=== PATIENT | male | born 1995 | race Caucasian/White ===

== ENCOUNTER 2016-11-22 14:40 | Emergency (ER) | payer BC ==
[~2016-11-22] VITALS: Ht 180.3 cm; Wt 79.0 kg
[2016-11-22 14:43] VITALS: TEMP 36.9; Ht 180.3 cm; Wt 79.0 kg
--- NOTE | 2016-11-22 14:53 | EMERGENCY ROOM VISIT NOTE ---
History Report prepared by Toyaibkavita: Jean Paul Roy Under the Supervision of: Dr. Arthur Naylor D.O. First contact with patient: 14:42 Stated Complaint: OVERDOSE (ACCIDENTAL) History of Present Illness The patient is a 21 year old male who presents to the Emergency Room with complaints of possible acute marijuana overdose. The patient believes he ate a cookie that contained THC at 1310 today. He has never ingested THC in an edible form before. He ate the entire cookie, which was acquired from an acquaintance. He was by himself when he ate it. He is not sure if the acquaintance made the cookie themselves. They did not tell him what was in the cookie, but it came with a note that said "surprise." The patient complains of new chest pain and shortness of breath, and he feels "off." He denies nausea or vomiting. He denies other drug or alcohol ingestion today. He did have some coffee. He does not take any medications. He denies any major medical problems. Source of History: patient Onset: 1310 today Position: other (global) Quality: other (possible marijauna overdose) Timing: other (acute) Associated Symptoms: + SOB, + chest pain, No nausea, No vomiting Review of Systems See HPI for pertinent positives & negatives. A total of 10 systems reviewed and were otherwise negative. Past Medical & Surgical Medical Problems: (1) No known health problems Family History No pertinent family history Social History Drug Use: marijuana Occupation Status: [employer] student Current/Historical Medications No Active Prescriptions or Reported Meds Allergies Coded Allergies: Ethanol (Verified Allergy, Unknown, hives, 11/22/16) Guaifenesin (Verified Allergy, Unknown, hives, 11/22/16) Physical Exam Vital Signs Date Time Temp Pulse Resp B/P Pulse Ox O2 Delivery O2 Flow Rate FiO2 11/22/16 18:30 97 16 142/84 99 Room Air 11/22/16 16:16 78 16 113/80 96 11/22/16 14:54 111 11/22/16 14:43 36.9 123 20 130/79 99 Room Air Physical Exam GENERAL: Patient is awake, alert, and in no acute distress. Patient is resting comfortably and showing no signs of anxiety EYES: The conjunctivae are injected bilaterally. The pupils are dilated but reactive to light bilaterally. EARS, NOSE, MOUTH AND THROAT: The nose is without any evidence of any deformity. Mucous membranes are dry tongue is midline NECK: The neck is nontender and supple. RESPIRATORY: Normal respiratory effort is noted there is no evidence of wheezing rhonchi or rales CARDIOVASCULAR: Tachycardic rate noted to auscultation, no definite murmur was noted. GASTROINTESTINAL: The abdomen is soft. Bowel sounds are present in all quadrants. Abdomen is nontender MUSCULOSKELETAL/EXTREMITIES: There is no evidence of gross deformity full range of motion is noted in the hips and shoulders SKIN: There is no obvious evidence of any rash. There are no petechiae, pallor or cyanosis noted. NEUROLOGIC: Patient is awake alert and oriented x3 strength is symmetric patellar reflexes are 2+ bilaterally Medical Decision & Procedures ER Provider Diagnostic Interpretation: X-ray results as stated below per interpretation by me and the radiologist. CHEST ONE VIEW PORTABLE CLINICAL HISTORY: posse OD dyspnea COMPARISON STUDY: No previous studies for comparison. FINDINGS: The bones soft tissues and hemidiaphragms are normal. The cardiomediastinal silhouette is normal. The lungs are clear. The pulmonary vasculature is normal. IMPRESSION: Negative chest. Electronically signed by: Anup Wood M.D. 11/22/2016 3:01 PM Dictated Date/Time: 11/22/2016 3:00 PM Laboratory Results Test 11/22/16 00:00 Urine Opiates Screen NEG (NEG) Urine Methadone, Qualitative NEG (NEG) Urine Barbiturates NEG (NEG) Urine Phencyclidine (PCP) Level NEG (NEG) Ur Amphetamine/Methamphetamine NEG (NEG) MDMA (Ecstasy) Screen NEG (NEG) Urine Benzodiazepines Screen NEG (NEG) Urine Cocaine Metabolite NEG (NEG) Urine Marijuana (THC) POS (NEG) Laboratory results per my review. Medications Administered Medications (Trade) Dose Ordered Sig/Rc Route Start Time Stop Time Status Last Admin Dose Admin Ondansetron HCl (Zofran Odt) 4 mg ONE ONCE PO 11/22/16 15:00 11/22/16 15:01 DC 11/22/16 15:12 4 MG ECG Indication: toxicologic Rate (beats per minute): 101 Rhythm: sinus tachycardia Findings: no acute ischemic change, no ectopy ED Course 1442: The patient was evaluated in room B3b. A complete history and physical examination were performed. 1500: Zofran Odt 4 mg PO. 1758: Reevaluated the patient. Discussed the discharge instructions with him. He verbalized understanding and agreement. The patient was prepared for discharge. Medical Decision Prior records/ancillary studies reviewed. Triage Nursing notes reviewed. The patient's history was concerning for altered mental status and probable overdose. Differential diagnosis: Etiologies such as toxicologic, infection, hypoglycemia, electrolyte abnormalities, cardiac sources, intracerebral event, neurologic, as well as others were entertained. The patient is a 21-year-old male who presented to the emergency department for an evaluation of altered mental status. The patient states that he had a friend cookie that he ate. The cookie had a field contact technician it which said "surprise". The patient thought that this meant it was a marijuana edible cookie. He presented to the emergency department because he is unsure what exactly he ate. The patient did have tachycardia. Otherwise his vital signs were stable. The patient was observed in a period of time apartment. His condition improved significantly in a pattern that I feel would be consistent with marijuana at all. I discussed her own troubles with the patient described that they're not a good idea to use because there are legal also they're very predictable absorption. He was encouraged to rest and avoid any strenuous activity. He was encouraged to follow-up with [facility] this week. He was also encouraged to avoid any further drug or alcohol abuse. He was also encouraged to return the emergency Department immediately if symptoms change worsen or need arises. Impression Primary Impression: Marijuana intoxication Scribe Attestation The scribe's documentation has been prepared under my direction and personally reviewed by me in its entirety. I confirm that the note above accurately reflects all work, treatment, procedures, and medical decision making performed by me. Departure Information Dispostion Home / Self-Care Prescriptions No Active Prescriptions or Reported Meds Forms HOME CARE DOCUMENTATION FORM, IMPORTANT VISIT INFORMATION, WORK / SCHOOL INSTRUCTIONS Patient Instructions ED Marijuana Abuse, My [facility] Additional Instructions Avoid any further alcohol or drug use. Drink plenty of clear liquids. Do not operate any heavy machinery including driving a vehicle for next 24 hours.
[2016-11-22] MEDS ORDERED: ONDANSETRON 4MG OD TAB PO ONE (15:00)
--- NOTE | 2016-11-22 15:03 | DIAGNOSTIC IMAGING REPORT ---
CHEST ONE VIEW PORTABLE CLINICAL HISTORY: posse OD dyspnea COMPARISON STUDY: No previous studies for comparison. FINDINGS: The bones soft tissues and hemidiaphragms are normal. The cardiomediastinal silhouette is normal. The lungs are clear. The pulmonary vasculature is normal. IMPRESSION: Negative chest. Electronically signed by: Anup Wood M.D. 11/22/2016 3:01 PM Dictated Date/Time: 11/22/2016 3:00 PM
[2016-11-22 16:52] LABS: BENZODIAZEPINE, URINE NEG (NEG); COCAINE,URINE NEG (NEG); PHENCYCLIDINE, URINE NEG (NEG)
[2016-11-22 18:30] VITALS: BP 142/84; PULSE 97; O2SAT 99
== END 2016-11-22 18:31 | disposition home or self-care (01) ==
LOC: C.EDB 14:45
DX: F12.929 Cannabis use, unspecified with intoxication, unspecified (principal); R00.0 Tachycardia, unspecified; Z88.8 Allergy status to other drugs, medicaments and biological substances

== ENCOUNTER 2016-12-06 00:46 | Emergency (ER) | payer BC ==
[~2016-12-06] VITALS: Ht 180.3 cm; Wt 78.6 kg
[2016-12-06 00:50] VITALS: Ht 180.3 cm; Wt 78.6 kg
[2016-12-06 02:04] LABS: BASO % 0.2 %; BASO ABS # 0.02 K/uL (0-0.2); EOS % 0.1 %; HEMATOCRIT 43.8 % (42-52); IG% 0.2 %; LYMPH ABS # 1.42 K/uL (1.2-3.4); MEAN CELL VOLUME 62.5 fL (80-100); MEAN CORPUSCULAR HEMOGLOBIN 20.7 pg (25-34); MEAN CORPUSCULAR HGB CONC 33.1 g/dl (32-36); MONO % 8.1 %; NEUT % 75.4 %; PLATELET COUNT 222 K/uL (130-400); RED BLOOD COUNT 7.01 M/uL (4.7-6.1); WHITE BLOOD COUNT 8.87 K/uL (4.8-10.8)
[2016-12-06 02:24] LABS: ALT/SGPT 28 U/L (12-78); AST/SGOT 11 U/L (15-37); BLOOD UREA NITROGEN 15 mg/dl (7-18); BUN/CREATININE RATIO 14.7 (10-20); CALCIUM 9.1 mg/dl (8.5-10.1); CARBON DIOXIDE 28 mmol/L (21-32); CHLORIDE 106 mmol/L (98-107); GLUCOSE 101 mg/dl (70-99); MAGNESIUM 2.2 mg/dl (1.8-2.4); POTASSIUM 3.9 mmol/L (3.5-5.1); SODIUM 142 mmol/L (136-145)
[2016-12-06 02:24] LABS: URINE APPEARANCE CLEAR (CLEAR); URINE BILIRUBIN NEG (NEG); URINE COLOR YELLOW; URINE NITRITE NEG (NEG); URINE SPECIFIC GRAVITY 1.023 (1.000-1.030); UROBILINOGEN NEG (NEG); ZZUR CULT IF INDIC CLEAN CATCH NO
[2016-12-06 02:29] LABS: MANUAL MICROSCOPIC REQUIRED? NO; REVIEW REQ? NO
[2016-12-06 02:35] LABS: ALB/GLOB RATIO 1.2 (0.9-2); ALKALINE PHOSPHATASE 106 U/L (45-117); THYROID STIMULATING HORMONE 0.421 uIu/ml (0.300-4.500)
[2016-12-06 02:41] LABS: COMPLETE YES; MICROCYTOSIS PRESENT
[2016-12-06 02:43] LABS: BENZODIAZEPINE, URINE NEG (NEG); COCAINE,URINE NEG (NEG); PHENCYCLIDINE, URINE NEG (NEG)
[2016-12-06] MEDS ORDERED: LORAZEPAM 0.5 MG TAB SL STA (03:00)
--- NOTE | 2016-12-06 03:43 | EMERGENCY ROOM VISIT NOTE ---
History First contact with patient: 01:02 Chief Complaint: NEURO SYMPTOMS Stated Complaint: TINGLING JAW PAIN,HANDS SHAKING,FATIGUE,NECK PAIN Nursing Triage Summary: Pt states right jaw and neck pain started around 1300 after eating lunch. Urgent care prescribed steroid. States later this evening experienced bilateral hand and foot numbness with mood swings. Pt also states he is speaker "slower than usual". History of Present Illness The patient is a 21 year old male who presents to the Emergency Room with complaints of multiple symptoms. He states that he has had a right lower dental pain which developed after eating a sandwich for lunch today. He was seen at [facility] and prescribed a steroid. He states this helped the tooth pain, but he has since developed pins and needles throughout his entire body, burning behind his eyes, and urinary urgency. He feels like he has been having difficulty with motor control. He reports that he has had a "burst of depression" and feels like he can't think straight. He reports he has had chills. He does report he has had some symptoms that were somewhat similar to this several months ago, but they resolved on their own. He denies any headache , neck pain, trauma, drug or alcohol use, numbness, weakness, blurred vision or slurred speech. Review of Systems A complete 10 point review of systems was reviewed with the patient with pertinent positives and negatives as per history of present illness. All else were negative. Past Medical/Surgical History Medical Problems: (1) No known health problems Family History No pertinent family history Social History Smoking Status: Never Smoker Drug Use: marijuana Occupation Status: [employer] student Current/Historical Medications No Active Prescriptions or Reported Meds Allergies Coded Allergies: Ethanol (Verified Allergy, Unknown, hives, 12/06/16) Guaifenesin (Verified Allergy, Unknown, hives, 12/06/16) Physical Exam Vital Signs Date Time Temp Pulse Resp B/P Pulse Ox O2 Delivery O2 Flow Rate FiO2 12/06/16 03:49 36.3 76 16 116/72 96 12/06/16 02:38 76 16 116/72 96 Room Air 12/06/16 01:40 88 12/06/16 00:50 36.3 67 20 151/84 100 Room Air Physical Exam VITALS: Vitals are noted on the nurse's note and reviewed by myself. Vital signs stable. GENERAL: This is a 21-year-old male, in no acute distress, nondiaphoretic, well- developed well-nourished. SKIN: The skin was without rashes. HEAD: Normocephalic atraumatic. EARS: External auditory canals clear, tympanic membranes pearly calixto without erythema or effusion bilaterally. EYES: Pupils equal round and reactive to light and accommodation. Extraocular movements intact. MOUTH: Mucous membranes moist. Tonsils are not enlarged. Pharynx without erythema or exudate. NECK: Supple without nuchal rigidity. No lymphadenopathy. HEART: Regular rate and rhythm without murmurs gallops or rubs. LUNGS: Clear to auscultation bilaterally without wheezes, rales or rhonchi. MUSCULOSKELETAL: No muscle atrophy, erythema, or edema noted. Full range of motion without joint tenderness in all extremities. Normal gait. Strength 5/ 5 throughout. NEURO: Patient was alert and oriented to person place and time. Normal sensation to light and sharp touch. Deep tendon reflexes 2+ throughout. No focal neurological deficits. Normal rapid alternating movements. Normal finger -to-nose testing. Negative Romberg and pronator drift. Medical Decision & Procedures ER Provider Diagnostic Interpretation: CT HEAD: No evidence of acute infarct, hemorrhage, mass, or edema. Minimal mucosal thickening of the paranasal sinuses. No acute osseous normality. Radiologist: Jesse Bazzi MD Laboratory Results 12/06/16 01:40 Red Blood Count 7.01, Mean Corpuscular Volume 62.5, Mean Corpuscular Hemoglobin 20.7, Mean Corpuscular Hemoglobin Concent 33.1, Neutrophils (%) (Auto) 75.4, Lymphocytes (%) (Auto) 16.0, Monocytes (%) (Auto) 8.1, Eosinophils (%) (Auto) 0.1, Basophils (%) (Auto) 0.2, Neutrophils # (Auto) 6.68, Lymphocytes # (Auto) 1.42, Monocytes # (Auto) 0.72, Eosinophils # (Auto) 0.01, Basophils # (Auto) 0.02 12/06/16 01:40 Test 12/06/16 01:40 12/06/16 02:00 White Blood Count 8.87 K/uL (4.8-10.8) Red Blood Count 7.01 M/uL (4.7-6.1) Hemoglobin 14.5 g/dL (14.0-18.0) Hematocrit 43.8 % (42-52) Mean Corpuscular Volume 62.5 fL (80-100) Mean Corpuscular Hemoglobin 20.7 pg (25-34) Mean Corpuscular Hemoglobin Concent 33.1 g/dl (32-36) Platelet Count 222 K/uL (130-400) Neutrophils (%) (Auto) 75.4 % Lymphocytes (%) (Auto) 16.0 % Monocytes (%) (Auto) 8.1 % Eosinophils (%) (Auto) 0.1 % Basophils (%) (Auto) 0.2 % Neutrophils # (Auto) 6.68 K/uL (1.4-6.5) Lymphocytes # (Auto) 1.42 K/uL (1.2-3.4) Monocytes # (Auto) 0.72 K/uL (0.11-0.59) Eosinophils # (Auto) 0.01 K/uL (0-0.5) Basophils # (Auto) 0.02 K/uL (0-0.2) RDW Standard Deviation 32.9 fL (36.4-46.3) RDW Coefficient of Variation 14.7 % (11.5-14.5) Immature Granulocyte % (Auto) 0.2 % Immature Granulocyte # (Auto) 0.02 K/uL (0.00-0.02) Microcytosis PRESENT Anion Gap 8.0 mmol/L (3-11) Est Creatinine Clear Calc Drug Dose 125.4 ml/min Estimated GFR () 125.0 Estimated GFR (Non- 107.9 BUN/Creatinine Ratio 14.7 (10-20) Calcium Level 9.1 mg/dl (8.5-10.1) Magnesium Level 2.2 mg/dl (1.8-2.4) Total Bilirubin 0.6 mg/dl (0.2-1) Aspartate Amino Transf (AST/SGOT) 11 U/L (15-37) Alanine Aminotransferase (ALT/SGPT) 28 U/L (12-78) Alkaline Phosphatase 106 U/L (45-117) Troponin I < 0.015 ng/ml (0-0.045) Total Protein 7.8 gm/dl (6.4-8.2) Albumin 4.3 gm/dl (3.4-5.0) Globulin 3.5 gm/dl (2.5-4.0) Albumin/Globulin Ratio 1.2 (0.9-2) Thyroid Stimulating Hormone (TSH) 0.421 uIu/ml (0.300-4.500) Urine Color YELLOW Urine Appearance CLEAR (CLEAR) Urine pH 7.0 (4.5-7.5) Urine Specific [place] 1.023 (1.000-1.030) Urine Protein NEG (NEG) Urine Glucose (UA) NEG (NEG) Urine Ketones NEG (NEG) Urine Occult Blood NEG (NEG) Urine Nitrite NEG (NEG) Urine Bilirubin NEG (NEG) Urine Urobilinogen NEG (NEG) Urine Leukocyte Esterase NEG (NEG) Urine Opiates Screen NEG (NEG) Urine Methadone, Qualitative NEG (NEG) Urine Barbiturates NEG (NEG) Urine Phencyclidine (PCP) Level NEG (NEG) Ur Amphetamine/Methamphetamine NEG (NEG) MDMA (Ecstasy) Screen NEG (NEG) Urine Benzodiazepines Screen NEG (NEG) Urine Cocaine Metabolite NEG (NEG) Urine Marijuana (THC) NEG (NEG) Medications Administered Medications (Trade) Dose Ordered Sig/Rc Route Start Time Stop Time Status Last Admin Dose Admin Lorazepam (Ativan Tab) 0.5 mg NOW STAT SL 12/06/16 03:00 12/06/16 03:02 DC 12/06/16 03:06 0.5 MG ECG Rate (beats per minute): 67 Rhythm: normal sinus (sinus arrhythmia) Findings: no acute ischemic change, no ectopy ED Course The patient was evaluated as above. Labs were drawn and IV access was obtained. CT was performed and read by radiology as above. Patient was reevaluated and given 0.5 mg Ativan Patient was reevaluated and stated that he felt slightly better. Discharge instructions were reviewed with the patient. The patient verbalized understanding of my assessment and treatment plan and was discharged home in good condition. Medical Decision Differential diagnosis includes malignancy, infection, electrolyte abnormality, thyroid abnormality, anxiety, among others. The patient is a 21-year-old male who presents today complaining of multiple vague symptoms. Labs revealed no leukocytosis, anemia or concerning electrolyte abnormalities. Patient is in a euthyroid state. Troponin was not elevated. Urinalysis was not suggestive of infection. Urine tox screen was negative. EKG was interpreted by myself and shows a normal sinus rhythm with sinus arrhythmia. A CT scan of the head was performed and was unremarkable. The patient has a completely benign neurological examination. He did question whether the symptoms could be due to MS, and I explained that I felt this was highly unlikely. I do feel his symptoms are likely related to anxiety. He was informed of these findings and was instructed to follow-up closely with his primary care provider. He did have significant improvement of symptoms throughout the duration of his stay in the emergency department. The patient's case was reviewed with Dr. Sifuentes, ED attending physician, who agreed with my assessment and treatment plan. Based on the patient's presentation and work up, I feel the patient is stable for outpatient treatment. The patient was educated to return to the emergency department for any worsening of their current condition or new/concerning symptoms. He will follow up with his PCP. Impression Primary Impression: Anxiety Departure Information Dispostion Home / Self-Care Condition GOOD Prescriptions No Active Prescriptions or Reported Meds Referrals No Doctor, Assigned (PCP) Patient Instructions My [facility] Additional Instructions Follow-up with your primary care provider as soon as you get home. Rest today and tomorrow. Return to the emergency department with any worsening or new/concerning symptoms.
[2016-12-06 03:49] VITALS: BP 116/72; PULSE 76; TEMP 36.3; O2SAT 96
--- NOTE | 2016-12-06 06:31 | DIAGNOSTIC IMAGING REPORT ---
CT HEAD WITHOUT CONTRAST (CT) CLINICAL HISTORY: Headache, dizziness, slurred speech, motor control issues. COMPARISON STUDY: No previous studies for comparison. TECHNIQUE: Axial CT of the brain is performed from the vertex to the skull base. IV contrast was not administered for this examination. CT DOSE: 537.48 mGy.cm FINDINGS: No intra or extra-axial mass lesions are visualized. There is no CT evidence of acute cortical infarction. There is no evidence of midline shift. There is no acute hemorrhage. No calvarial fractures are visualized. There is no evidence of pathologic ventricular dilatation. There is no evidence of acute sinusitis IMPRESSION: Normal noncontrast head CT. Electronically signed by: Nathan Campos M.D. 12/06/2016 6:30 AM Dictated Date/Time: 12/06/2016 6:29 AM
[2016-12-07] MEDS ORDERED: PRED-301 PO (10:55)
== END 2016-12-06 03:09 | disposition home or self-care (01) ==
LOC: C.EDB 00:48
DX: F41.9 Anxiety disorder, unspecified (principal); Z88.8 Allergy status to other drugs, medicaments and biological substances

== ENCOUNTER 2016-12-07 10:02 | Emergency (ER) | payer BC ==
[~2016-12-07] VITALS: Ht 180.3 cm; Wt 74.3 kg
[2016-12-07 10:10] VITALS: TEMP 36.6; Ht 180.3 cm; Wt 74.3 kg
[2016-12-07] MEDS ORDERED: PRED-301 PO (10:55)
[2016-12-07] MEDS ORDERED: GADAVIST IV PRN (12:30)
--- NOTE | 2016-12-07 12:34 | EMERGENCY ROOM VISIT NOTE ---
History Report prepared by Vinay: Jean Paul Roy Under the Supervision of: Dr. Sulma Mckenna D.O. First contact with patient: 10:58 Chief Complaint: ABDOMINAL PAIN Stated Complaint: STOMACH PAIN, SLURRED SPEECH, DIZZY, BLURRY EYE Nursing Triage Summary: PT VERBALIZES "I HAVE A BURNING SENSATION, ELECTRICITY IN MY TOUNGE, AND DIFFICULTY SWALLOWING. I ALSO HAVE OCCASIONAL DIZZINESS, TINGLING IN MY FACE AND HEAD, NECK STIFNESS, AND A HEADACHE". PT VERBALIZES I WAS SEEN FOR THIS A FEW DAYS AGO HERE, HAD A CT SCAN AND BLOODWORK DONE WHICH WERE ALL NEGATIVE. PT C/O ABDOMINAL PAIN 05/14 TODAY ALONG WITH ALL THE OTHER SYMPTOMS, PT WENT TO [facility] TODAY AND WAS TOLD TO COME HERE FOR "STROKE LIKE SYMPTOMS" AND MIGHT NEED AN MRI. History of Present Illness The patient is a 21 year old male who presents to the Emergency Room with complaints of persistent right-sided frontal headache for the past several days. The patient's symptoms started with the frontal headache along with right jaw pain and stiff neck. The jaw pain was worse when he would bite down. He notes that today the headache and jaw pain are not as bad. He still has his wisdom teeth. The patient went to [facility] and was started on Prednisone. He was seen here in the ED yesterday and had negative blood work and imaging of his head. The patient has also been experiencing intermittent numbness and tingling in his hands, legs, and face. The numbness is usually bilateral. He has also noticed some slurring of his speech and blurry vision in his right eye. The patient was dizzy when he woke up today and also had abdominal pain and a burning sensation in his tongue. The patient has been taking Ibuprofen. He did not eat since last night. He went to [facility] today and was referred to the ED for an MRI. The patient has been taking final exams and notes that he has had trouble focusing. He has family history of late onset diabetes. The patient uses marijuana. Source of History: patient Onset: several days ago Position: head (right frontal) Timing: other (persistent) Modifying Factors (Relieving): ibuprofen Associated Symptoms: + abdominal pain, + numbness Review of Systems See HPI for pertinent positives & negatives. A total of 10 systems reviewed and were otherwise negative. Past Medical & Surgical Medical Problems: (1) Marijuana intoxication (2) No known health problems Family History Diabetes mellitus Social History Smoking Status: Never Smoker Drug Use: marijuana Occupation Status: [employer] student Current/Historical Medications Scheduled Prednisone (Prednisone), Unknown Dose PO DAILY Allergies Coded Allergies: Ethanol (Verified Allergy, Unknown, hives, 12/07/16) Guaifenesin (Verified Allergy, Unknown, hives, 12/07/16) Physical Exam Vital Signs Date Time Temp Pulse Resp B/P Pulse Ox O2 Delivery O2 Flow Rate FiO2 12/07/16 13:28 76 18 114/63 100 12/07/16 11:45 69 18 140/78 99 Room Air 12/07/16 10:10 36.6 76 18 122/79 100 Room Air Physical Exam GENERAL: alert, well appearing, well nourished, no distress, non-toxic EYE EXAM: normal conjunctiva, PERRL and EOM's grossly intact OROPHARYNX: no exudate, no erythema, lips, buccal mucosa, and tongue normal and mucous membranes are moist NECK: supple, no nuchal rigidity, no adenopathy, non-tender LUNGS: Clear to auscultation. Normal chest wall mechanics HEART: no murmurs, S1 normal and S2 normal ABDOMEN: abdomen soft, non-tender, normo-active bowel sounds, no masses, no rebound or guarding. BACK: Back is symmetrical on inspection and there is no deformity, no midline tenderness, no CVA tenderness. SKIN: no rashes and no bruising UPPER EXTREMITIES: upper extremities are grossly normal. LOWER EXTREMITIES: No pitting edema. NEURO EXAM: Normal sensorium, cranial nerves II-XII intact, normal speech, no weakness of arms, no weakness of legs. No drift. Finger to nose intact. Gross sensation intact. Medical Decision & Procedures ER Provider Diagnostic Interpretation: Results have been interpreted by the radiologist and reviewed by me. MRI OF THE BRAIN WITHOUT AND WITH IV CONTRAST CLINICAL HISTORY: Slurred speech, headaches and visual changes. COMPARISON STUDY: Head CT December 06, 2016. TECHNIQUE: Utilizing a 1.5 Carolyn magnet and dedicated coil, multiplanar, multiecho imaging of the brain was performed pre and postcontrast administration. IV administration of 8 mL of Gadavist contrast was uneventful. FINDINGS: There are no areas of restricted diffusion. No acute intracranial hemorrhage, midline shift or mass effect is present. Ventricular system is normal. Basilar cisterns are patent. There are no extra-axial collections. Flow-voids for the major intracranial vessels are present. There are no intracranial masses or areas of pathologic enhancement. No areas of signal abnormality are present. Orbits are unremarkable. There is minimal mucosal thickening of the ethmoid sinuses. There is no fluid within the mastoid air cells. IMPRESSION: Normal MRI of the brain. Electronically signed by: Héctor Mcdaniels M.D. 12/07/2016 12:34 PM Dictated Date/Time: 12/07/2016 12:31 PM Laboratory Results Test 12/07/16 11:42 Bedside Glucose 86 mg/dl (70-99) ED Course 1105: The patient was evaluated in room C1b. A complete history and physical exam was performed. 1252: Discussed MRI results with him. He is happy to go home. Medical Decision Differential diagnosis includes stroke, MS, adverse drug reaction, anxiety. Patient well-appearing here despite complaints. Patient clearly anxious with multiple complaints on review of systems. Review of EMR showed negative labs and imaging done yesterday and suspicion for anxiety. Discussed the patient at bedside it is possible that irruption of wisdom teeth physical intermitting to intermittent jaw pain leading to headaches. Discussed also possible that some of patient's symptoms are now adverse reactions to the prednisone he was started on. Discussed with patient cessation of prednisone, use of over-the- counter pain medications, advised close follow-up with family physician at home. Discussed with him symptoms to watch and return for, he verbalized understanding was agreeable with plan. I do not suspect meningitis/encephalitis , bacteremia/sepsis, electrolytes and renal function within normal limits yesterday. I do not suspect any additional recreational drug use, urine tox screen yesterday only positive for marijuana. Impression Primary Impression: Jaw pain Additional Impressions: Headache Anxiety Medication reaction Paresthesia Scribe Attestation The scribe's documentation has been prepared under my direction and personally reviewed by me in its entirety. I confirm that the note above accurately reflects all work, treatment, procedures, and medical decision making performed by me. Departure Information Dispostion Home / Self-Care Referrals No Doctor, Assigned (PCP) Forms HOME CARE DOCUMENTATION FORM, IMPORTANT VISIT INFORMATION Patient Instructions My [facility] Additional Instructions Please follow-up with your family doctor and dentist back home. Please stop taking the steroids. You may use tylenol/ibuprofen for pain. Please do not take ibuprofen on an empty stomach and make sure you are drinking plenty of water. If you have any worsening or new symptoms, please return to the emergency room. Stroke History Time Last Known Well several days ago Stroke t-PA Criteria Reviewed Does NOT meet criteria for t-PA Reason t-PA Not Given Treatment not indicated Problem Qualifiers Additional Impressions: Headache Headache type: unspecified Headache chronicity pattern: acute headache Intractability: not intractable Qualified Codes: R51 - Headache Medication reaction Encounter type: initial encounter Qualified Codes: T88.7XXA - Unspecified adverse effect of drug or medicament, initial encounter
[2016-12-07 13:28] VITALS: BP 114/63; PULSE 76; O2SAT 100
== END 2016-12-07 13:32 | disposition home or self-care (01) ==
LOC: C.EDB 10:03 → C.EDC 13:32
DX: R51 Headache (principal); F41.9 Anxiety disorder, unspecified; R68.84 Jaw pain; T50.905A Adverse effect of unspecified drugs, medicaments and biological substances, initial encounter; R20.2 Paresthesia of skin; Z83.3 Family history of diabetes mellitus